=== PATIENT | female | born 1990 | race Caucasian/White ===

== ENCOUNTER 2017-07-12 19:43 | Emergency (ER) | payer SELFPAY ==
[~2017-07-12 19:43] MED LIST: COLACE100 MG PO; NORCO1 TA2 PO
== END 2017-07-12 22:33 | disposition left against medical advice (07) ==
LOC: ED 19:43
DX: Z53.21 Procedure and treatment not carried out due to patient leaving prior to being seen by health care provider (principal)

== ENCOUNTER 2017-07-13 06:23 | Emergency (ER) | payer SELFPAY ==
[~2017-07-13] VITALS: Ht 154.9 cm; Wt 64.4 kg
[2017-07-13 06:37] VITALS: Ht 154.9 cm; Wt 64.4 kg
[2017-07-13 10:27] VITALS: BP 109/63
[2017-07-13 10:54] LABS: microscopic required? YES; urine erythrocyte 2+ (NEGATIVE)
== END 2017-07-13 10:27 | disposition home or self-care (01) ==
LOC: ED 06:23
PROVIDERS: Specialist
DX: N39.0 Urinary tract infection, site not specified (principal); Z88.8 Allergy status to other drugs, medicaments and biological substances; Z87.19 Personal history of other diseases of the digestive system; Z87.42 Personal history of other diseases of the female genital tract
CPT/HCPCS: J0696; J1885

== ENCOUNTER 2018-01-01 19:21 | Emergency (ER) | payer SELFPAY ==
[~2018-01-01] VITALS: Ht 154.9 cm; Wt 66.7 kg
[2018-01-01 19:33] VITALS: Ht 154.9 cm; Wt 66.7 kg
[2018-01-01 20:57] LABS: BASOPHIL % 0.3 % (0-2); PLATELET COUNT 358 x10^3mcL (130-400)
[2018-01-01 20:58] LABS: RED CELL DISTRIBUTION WIDTH 15.6 % (11.5-14.5)
[2018-01-01 22:32] VITALS: BP 127/70
== END 2018-01-01 22:32 | disposition home or self-care (01) ==
LOC: ED 19:21
PROVIDERS: Emergency Medicine
DX: O20.0 Threatened abortion (principal); Z3A.01 Less than 8 weeks gestation of pregnancy; Z88.6 Allergy status to analgesic agent

== ENCOUNTER 2019-07-23 17:22 | Emergency (ER) | payer MEDICAID ==
[~2019-07-23] VITALS: Ht 154.9 cm; Wt 72.6 kg
[2019-07-23 17:34] VITALS: Ht 154.9 cm; Wt 72.6 kg
[2019-07-23 21:50] LABS: microscopic required? NO
[2019-07-23 22:03] LABS: UA SPECIFIC GRAVITY 1.015 (1.005-1.035); urine erythrocyte NEGATIVE (NEGATIVE)
[2019-07-23 23:45] VITALS: BP 110/65
== END 2019-07-23 23:45 | disposition home or self-care (01) ==
LOC: ED 17:22
PROVIDERS: Emergency Medicine
DX: O99.511 Diseases of the respiratory system complicating pregnancy, first trimester (principal); J06.9 Acute upper respiratory infection, unspecified; Z3A.01 Less than 8 weeks gestation of pregnancy; Z90.89 Acquired absence of other organs; Z88.8 Allergy status to other drugs, medicaments and biological substances
CPT/HCPCS: 87804

== ENCOUNTER 2019-08-19 18:20 | Emergency (ER) | payer SELFPAY ==
[~2019-08-19] VITALS: Ht 154.9 cm; Wt 71.7 kg
[2019-08-19 18:33] VITALS: Ht 154.9 cm; Wt 71.7 kg
[2019-08-19 19:45] LABS: BASOPHIL % 0.6 % (0-2); PLATELET COUNT 353 x10^3mcL (130-400)
[2019-08-19 19:49] LABS: microscopic required? YES; urine erythrocyte TRACE (NEGATIVE)
[2019-08-19 19:54] LABS: RED CELL DISTRIBUTION WIDTH 15.8 % (11.5-14.5)
[2019-08-19 21:41] VITALS: BP 112/68
== END 2019-08-19 21:41 | disposition home or self-care (01) ==
LOC: ED 18:20
PROVIDERS: Emergency Medicine
DX: O23.41 Unspecified infection of urinary tract in pregnancy, first trimester (principal); Z3A.10 10 weeks gestation of pregnancy
CPT/HCPCS: 36415

== ENCOUNTER 2019-08-24 20:24 | Emergency (ER) | payer SELFPAY ==
[~2019-08-24] VITALS: Ht 154.9 cm; Wt 69.9 kg
[2019-08-24 20:32] VITALS: Ht 154.9 cm; Wt 69.9 kg
[2019-08-24 21:22] LABS: BASOPHIL % 1.3 % (0-2)
[2019-08-24 21:31] LABS: PLATELET COUNT 406 x10^3mcL (130-400); RED CELL DISTRIBUTION WIDTH 15.9 % (11.5-14.5)
[2019-08-24 21:33] LABS: CARBON DIOXIDE 23.3 mmol/L (21-32); CHLORIDE SERUM 104 mmol/L (98-107); CREATININE SERUM 0.5 mg/dL (0.6-1.0); GFR1 > 60 mL/min; GLUCOSE SERUM 88 mg/dL (74-106); POTASSIUM SERUM 3.5 mmol/L (3.5-5.1); SODIUM SERUM 138 mmol/L (136-145)
[2019-08-24 21:38] LABS: ALBUMIN 3.7 g/dL (3.4-5.0); ALKALINE PHOSPHATASE 68 U/L (46-116); ALT/SGPT 34 U/L (14-59); AST/SGOT 24 U/L (15-37); BILIRUBIN TOTAL 0.3 mg/dL (0.20-1.00)
[2019-08-24 22:54] LABS: microscopic required? NO
[2019-08-24 23:11] LABS: UA SPECIFIC GRAVITY 1.015 (1.005-1.035); urine erythrocyte NEGATIVE (NEGATIVE)
[2019-08-25 00:55] VITALS: BP 119/83
== END 2019-08-25 00:55 | disposition home or self-care (01) ==
LOC: ED 20:24
PROVIDERS: Emergency Medicine
DX: O21.8 Other vomiting complicating pregnancy (principal); R10.30 Lower abdominal pain, unspecified; Z3A.11 11 weeks gestation of pregnancy; Z88.8 Allergy status to other drugs, medicaments and biological substances
CPT/HCPCS: J1200; J2765; J7030

== ENCOUNTER 2020-03-26 16:31 | Emergency (ER) | payer MEDICAID ==
[~2020-03-26] VITALS: Ht 154.9 cm; Wt 64.4 kg
[2020-03-26 16:42] VITALS: Ht 154.9 cm; Wt 64.4 kg
[2020-03-26 18:17] VITALS: BP 124/68
== END 2020-03-26 18:17 | disposition home or self-care (01) ==
LOC: ED 16:31
DX: R10.30 Lower abdominal pain, unspecified (principal); Z48.01 Encounter for change or removal of surgical wound dressing